=== PATIENT | male | born 1945 | race Caucasian/White ===

== ENCOUNTER → 2017-07-11 | Outpatient (CLI) | payer OTHER, BC | LOC: RAD 14:37 | DX: L40.0 Psoriasis vulgaris (principal); R07.9 Chest pain, unspecified; Z79.899 Other long term (current) drug therapy ==

== ENCOUNTER → 2019-11-04 | Outpatient (CLI) | payer OTHER, BC | LOC: RAD 13:28 | PROVIDERS: ATTEND Physician Assistant | DX: J98.4 Other disorders of lung (principal); L40.0 Psoriasis vulgaris; Z79.899 Other long term (current) drug therapy ==